=== PATIENT | female | born 1950 | race Caucasian/White ===

== ENCOUNTER → 2017-01-13 | Outpatient (CLI) | payer OTHER ==
[~2017-01-13] MED LIST: AMOXICILLIN500 M1 PO; LEVOFLOXACIN500 MG PO; LEVOTHROID0.025 MG PO; LISINOPRIL10 MG PO; LISINOPRIL5 MG PO; NORCO 325 MG-101 TAB PO; ZOCOR20 MG PO
== END | disposition home or self-care (01) ==
LOC: MAMMO 10:22
DX: Z12.31 Encounter for screening mammogram for malignant neoplasm of breast (principal)

== ENCOUNTER → 2017-03-07 | Outpatient (CLI) | payer OTHER | END | disposition home or self-care (01) | LOC: RAD 11:09 | DX: R10.30 Lower abdominal pain, unspecified (principal) ==

== ENCOUNTER → 2017-08-11 | Outpatient (CLI) | payer OTHER | END | disposition home or self-care (01) | LOC: RAD 10:26 | DX: Z01.810 Encounter for preprocedural cardiovascular examination (principal) ==

== ENCOUNTER → 2018-01-19 | Outpatient (CLI) | payer OTHER | END | disposition home or self-care (01) | LOC: MAMMO 02:31 | DX: Z12.31 Encounter for screening mammogram for malignant neoplasm of breast (principal) ==